=== PATIENT | female | born 1960 | race Caucasian/White ===

== ENCOUNTER 2024-07-17 12:50 | Emergency (ER) | payer OTHER ==
--- OUTSIDE RECORDS SUMMARY | 2024-07-17 12:53 | XMS REPORT | Clinical Summary ---
Author Name Unknown Organization [facility] Address [address] [place] [address] Care Team Providers Care Packing Machine Feeder Name Role Phone Hemal Montilla MD Primary Care Provider [phone] Yohana Garcia MD Unavailable Yohana Garcia MD Unavailable Carol Willis MD Unavailable Kvng Heredia Unavailable [phone] Hemal Montilla MD Unavailable [phone] Mallory Wu APRN Unavailable Allergies Active Allergy Reactions Criticality Noted Date Comments Hydrocodone-Acetaminophen 06/26/2016 Hives Penicillin G Hives 11/16/2015 Sulfamethoxazole Hives 11/16/2015 Medications fluticasone (FLONASE) 50 mcg/spray nasal spray Inhale 1 puff into each nostril daily. Active FLUoxetine (PROzac) 20 mg capsule Take 20 mg by mouth daily. Active albuterol (VENTOLIN HFA) 90 mcg/puff inhaler Inhale 1 puff by mouth daily as needed. Active CA COMB NO.1/VIT D3/B-6/FA/B12 (VITAMIN D3, CALCIUM CIT-PHOS, ORAL) Take 1 tablet by mouth daily. Active amitriptyline (ELAVIL) 50 mg tablet Take 1 tablet by mouth daily. 1 11/17/2015 Active cetirizine (ZyrTEC) 10 mg tablet Take 10 mg by mouth daily. Active FLUTICASONE/TOMMY ANTEROL (BREO ELLIPTA INHALATION) Inhale by mouth. Active busPIRone (BUSPAR) 10 mg tablet Take 1 tablet by mouth daily. 0 05/13/2017 Active montelukast (SINGULAIR) 10 mg tablet Take 1 tablet by mouth daily. 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 Surgical History Surgery Date Site/Laterality Comments HYSTERECTOMY 06/16/1997 - 06/15/1998 ELBOW SURGERY 06/16/1997 - 06/15/1998 Right BUNIONECTOMY 06/16/2006 - 06/15/2007 CYST REMOVAL 06/16/1978 - 06/15/1979 Right MASTECTOMY 06/16/2010 - 06/15/2011 OTHER SURGICAL HISTORY myxoma 6inch on right thigh COLONOSCOPY 06/16/1999 - 06/15/2000 normal follow at age 58 Medical History Medical History Date Comments Asthma Hay fever Irritable bowel syndrome Breast cancer 2010 Family History Medical History Relation Name Comments Ovarian cancer Maternal Aunt Lung cancer Maternal Uncle Relation Name Status Comments Maternal Aunt Maternal Uncle Social History Tobacco Use Types Packs/Day Years Used Date Smoking Tobacco: Never Smokeless Tobacco: Never Alcohol Use Standard Drinks/Week Comments Yes 3 (1 standard drink = 0.6 oz pur e alcohol) socially Comments No Sex and Gender Information Value Date Recorded Sex Assigned at Not on file Legal Sex Female 5:51 PM URGENT CARE PHYSICIAN Gender Identity Not on file Sexual Orientation Not on file Obstetrics History Para Term AB IAB SAB Ectopic Multiple Livin g Live Births 3 3 3 3 Date Outcome GA Total Labor Labor/2nd/3rd Weight Sex Type Anes PTL Vibha A1 A5 Name Clin Para Para Para Comments Mammogram: OS 10/2015 Dexa: OS 2015 normal Pap Smear: Hysterectomy 1996 Plan of Treatment Health Maintenance Due Date Last Done Comments Pneumococcal Vaccine: 65+ Years (1 of 1 - PCV) 009 COVID-19 Vaccine (2023- season) 2024 Influenza Vaccine (#1) 2024 Medical Devices Implanted Type Area Sand Caster Device Identifier Shelf Expiration Date Model / Serial / Lot Some Titanium Screw In Left Joint [place] Care Teams Packing Machine Feeder Relationship Specialty Start Date End Date Hemal Montilla MD [address] [place] [id number] [email or web address] PCP - General 08/16/15 Yohana Garcia MD [address] [place] [phone] [email or web address] PCP - External Referring 04/20/15 Yohana Garcia MD [address] [place] [id number] [email or web address] PCP - External Follow Up A 04/20/15 Carol Willis MD [address] [place] [id number] [email or web address] - External Follow Up B 05/05/15 Kvng Heredia PA [address] [place] [phone] [email or web address] Physician Backbreaker 08/23/15 Hemal Montilla MD [address] [place] [phone] [email or web address] Physician 08/23/15 Mallory Wu, LAURA [address] [place] [phone] [email or web address] Nurse Practitioner Breast Medical Oncology 06/26/16
[2024-07-17] MEDS ORDERED: KETOROLAC 30 MG/ML INJ ONE (13:43)
[2024-07-17 14:01] LABS: Specific Gravity 1.008 (1.005-1.030); Sqamous Epithelial <5 /HPF (None Seen); Urine Bacteria <20 /HPF (<20); Urine Bilirubin NEGATIVE (Negative); Urine Blood Negative (Negative); Urine Clarity Clear (Clear); Urine Color Colorless (Yellow); Urine Culture Reflex Order NOT NEEDED; Urine Glucose NEGATIVE (Negative); Urine Ketones NEGATIVE (Negative); Urine Microscopic Reflex YN ORDER UMIC; Urine Nitrite NEGATIVE (Negative); Urine Protein NEGATIVE (Negative); Urine RBC <5 /HPF (None Seen); Urine Urobilinogen Normal (Normal); Urine WBC <5 /HPF (<5); Urine pH 6.5 (5.0-7.0)
[2024-07-17 14:10] LABS: Absolute Basophils 0.1 K/uL (0-0.5); Absolute Eosinophils 0.1 K/uL (0-0.5); Absolute Lymphocytes (CBC) 1.4 K/uL (0.7-4.9); Absolute Monocytes 0.4 K/uL (0.1-1.3); Absolute Neutrophil 3.8 K/uL (1.8-8.0); Basophils % 1.3 % (0-1.3); Hematocrit 42.4 % (36.0-45.0); Hemoglobin 14.6 g/dL (12.0-15.0); Lymphocytes % 25.1 % (15.3-44.8); MCH 29.1 pg (27.0-35.0); MCHC 34.5 g/dL (32.0-36.0); MCV 84.3 fL (80-100); MPV 8.5 fL (7.6-11.3); Monocytes % 7.3 % (3.3-12.3); Neutrophils % 65.3 % (41.7-73.7); Platelets 218 thou/uL (152-406); RBC Red Blood Cell Count 5.03 M/uL (3.86-4.86); Red Cell Distribution Width 14.1 % (12.1-15.2)
[2024-07-17 14:32] LABS: Albumin 4.2 g/dL (3.4-5.0); Albumin/Globulin Ratio 1.2 (1.1-1.8); Anion Gap 8.8 mEq/L (5.0-15.0); Bilirubin Total 0.3 mg/dL (0.2-1.0); Globulin 3.5 g/dL (2.3-3.5); Potassium 3.8 mEq/L (3.5-5.1); Protein, Total 7.7 g/dL (6.4-8.2)
--- NOTE | 2024-07-17 15:59 | RAD REPORT ---
EXAMINATION: CT Abdomen Pelvis W Contrast CLINICAL INDICATION: Female, 63 years old. RLQ abd pain;Abd pain TECHNIQUE: CT abdomen and pelvis was performed, after the administration of IV contrast, as per [facility] protocol. Axial, sagittal and coronal reconstructions were obtained. One or more of the following dose reduction techniques were used: Automated exposure control, adjustment of the mA and k V according to patient size, and iterative reconstruction. Unless otherwise specified, incidental findings do not require dedicated imaging follow-up. COMPARISON: 05/01/2024 FINDINGS: LOWER CHEST: The visualized lung bases are clear. LIVER: Normal in size and contour. Hypoattenuating lesions including a superior left subcapsular lobu lated 2 cm lesion nearing fluid density, central near fluid density 8 mm lesion, and a mildly hypodense elongated right peripheral hepatic dome 1.2 cm lesion, stable. No suspicious focal lesion. BILIARY SYSTEM: No suspicious abnormalities. SPLEEN: Normal size. No focal lesion. PANCREAS: No mass, ductal dilation, or dior-pancreatic fluid. ADRENALS: Normal; no mass. KIDNEYS: Normal size and contour. No hydronephrosis. URINARY BLADDER: Decompressed limiting evaluation. GASTROINTESTINAL TRACT: No evidence of free air, significant intra-abdominal free fluid, bowel obstru ction or abscess. APPENDIX: Normal appendix. LYMPH NODES: No lymphadenopathy. MUSCULOSKELETAL: No acute or suspicious osseous abnormality. ADDITIONAL FINDINGS: None. IMPRESSION: No acute or concerning abnormalities seen in the abdomen or pelvis. Stable hepatic lesions described above, favored to be benign.
--- NOTE | 2024-07-17 16:11 | EDPHYS ---
Physician Documentation [facility] Name: Jodi Ackerman Age: 63 yrs Sex: Female : 1960 Arrival Date: 07/17/2024 Time: 12:50 Bed 13 Private MD: ED Physician José Manuel Dejesus HPI: 07/17 14:16 This 63 yrs old Female presents to ER via Ambulatory with complaints of Abdominal Pain. rn 14:16 The patient presents with abdominal pain right lower quadrant. Onset: The rn symptoms/episode began/occurred today. The symptoms do not radiate. Associated signs and symptoms: Pertinent negatives: nausea and vomiting, blood in stools, chest pain, constipation, diarrhea, dysuria, fever, hematuria. Modifying factors: The symptoms are alleviated by nothing, the symptoms are aggravated by touching the area. Severity of pain: At its worst the pain was moderate in the emergency department the pain is unchanged. The patient has experienced a previous episode. Patient reports this pain reminds her of when she had diverticulitis but on the opposite side. Reports right lower quadrant abdominal pain that began today. No fever or chills. No vomiting. Does report increase urinary frequency but no hematuria. No history of kidney stones.. Historical: - Allergies: 13:25 PENICILLINS; ap3 13:25 Sulfa (Sulfonamide Antibiotics); ap3 - PMHx: 13:25 Hypertensive disorder; right breast cancer; ap3 - PSHx: 13:25 right mastectomy; ap3 - Immunization history:: Client reports receiving the 2nd dose of the Covid vaccine, Flu vaccine is not up to date. - Infectious Disease History:: Denies. - Social history:: Smoking status: Patient denies any tobacco usage or history of. - Family history:: not pertinent. - Hospitalizations: : No recent hospitalization is reported. ROS: 14:16 Constitutional: Negative for fever, chills, and weight loss, Cardiovascular: Negative rn for chest pain, palpitations, and edema, Respiratory: Negative for shortness of breath, cough, wheezing, and pleuritic chest pain, Abdomen/GI: Positive for right lower quadrant abdominal pain Back: Negative for injury and pain, : Positive for increased urinary frequency MS/Extremity: Negative for injury and deformity, Skin: Negative for injury, rash, and discoloration, Neuro: Negative for headache, weakness, numbness, tingling, and seizure, Exam: 14:16 Constitutional: This is a well developed, well nourished patient who is awake, alert, rn and in no acute distress. Cardiovascular: Regular rate and rhythm. No pulse deficits. Respiratory: No increased work of breathing, no retractions or nasal flaring. Abdomen/GI: Soft, right lower quadrant tenderness without rebound or peritoneal signs. No masses. No distention. Vital Signs: 13:24 BP 152 / 81; Pulse 75; Resp 17; Temp 97.8(O); Pulse Ox 98% on R/A; Weight 67.13 kg; ap3 Height 5 ft. 3 in. ; Pain 7/10; 14:16 BP 147 / 78; Pulse 75; Resp 18 S; Pulse Ox 100% on R/A; kc6 15:09 Pulse 65; Resp 16 S; Pulse Ox 100% on R/A; kc6 13:24 Body Mass Index 26.22 (67.13 kg, 160.02 cm) ap3 13:24 Pain Scale: Adult ap3 MDM: 13:06 Medical Screening Exam initiated rn 16:10 Differential diagnosis: appendicitis, bowel obstruction, cholecystitis, Cholelithiasis, rn diverticulitis, gastritis, non-specific abd pain, pancreatitis, Peptic Ulcer Disease, Ureterolithiasis, urinary tract infection. Data reviewed: vital signs, nurses notes, lab test result(s), radiologic studies, CT scan, and as a result, I will discharge patient. Counseling: I had a detailed discussion with the patient and/or guardian regarding the historical points, exam findings, and any diagnostic results supporting the discharge/admit diagnosis, lab results, radiology results, the need for outpatient follow up, to return to the emergency department if symptoms worsen or persist or if there are any questions or concerns that arise at home. Special discussion: Based on the patient's Hx, exam, and Dx evaluation, there is no indication for emergent surgery or inpatient Tx. It is understood by the patient/guardian that if the Sx's persist or worsen they need to return immediately for re-evaluation. I discussed with the patient/guardian in detail that at this point there is no indication for admission to the hospital. It is understood, however, that if the symptoms persist or worsen the patient needs to return immediately for re-evaluation. ED course: No acute findings in CT or blood work but pain very similar to last diverticulitis, just darted 2 hours prior to arrival so possibly too early to see on CT imaging. Will discharge home with antibiotics as presumed inflammatory process in the abdomen.. 07/17 13:31 Order name: CBC with Diff; Complete Time: 14:47 rn 07/17 13:31 Order name: CMP; Complete Time: 14:47 rn 07/17 13:31 Order name: Lipase; Complete Time: 14:47 rn 07/17 13:31 Order name: Urinalysis w/ reflexes; Complete Time: 14:47 rn 07/17 13:31 Order name: CT Abd/Pelvis - IV Contrast Only; Complete Time: 16:01 rn 07/17 13:31 Order name: IV Saline Lock; Complete Time: 14:09 rn 07/17 13:31 Order name: Labs collected and sent; Complete Time: 14:09 rn Administered Medications: 14:09 Drug: Ketorolac IVP 15 mg IVP once Route: IVP; Site: left forearm; kc6 15:07 Follow up: Response: No adverse reaction kc6 16:44 Drug: Ciprofloxacin PO 500 mg PO once Route: PO; kc6 16:54 Follow up: Response: No adverse reaction kc6 16:44 Drug: metroNIDAZOLE PO 500 mg PO once Route: PO; kc6 16:54 Follow up: Response: No adverse reaction kc6 Disposition Summary: 07/17/24 16:11 Discharge Ordered Notes: Location: Home rn Problem: new rn Symptoms: have improved rn Condition: Stable rn Diagnosis - Lower abdominal pain, unspecified rn Followup: rn - With: Private Physician - When: As needed - Reason: Recheck today's complaints, Re-evaluation by your physician Discharge Instructions: - Discharge Summary Sheet rn - Abdominal Pain, Adult rn Forms: - Medication Reconciliation Form rn - Antibiotic ornament maker hand - Prescription Opioid Use rn - Patient Portal Instructions rn - Leadership Thank You Letter rn Prescriptions: - Flagyl 500 mg Oral tablet - take 1 tablet ORAL route every 12 hours for 10 days; 2 tablet; Refills: 0, rn Product Selection Permitted - Cipro 500 mg Oral tablet - take 1 tablet ORAL route every 12 hours for 10 days; 20 tablet; Refills: 0, rn Product Selection Permitted Signatures: Dispatcher [employer] EDJosé Manuel Joe MD MD rn Prokisch, Amanda, RN RN [email or web address] Cortney Mitchell, RN RN kc6
--- NOTE | 2024-07-17 16:11 | ER ---
Nurse's Notes [facility] Name: Jodi Ackerman Age: 63 yrs Sex: Female : 1960 Arrival Date: 07/17/2024 Time: 12:50 Bed 13 Private MD: Diagnosis: Lower abdominal pain, unspecified Presentation: 07/17 13:24 Chief complaint: Patient states: she started having right abdominal pain approx 2 hours ap3 prior to arrival. patient states the pain is a burning sensation and reports the pain as a 7/10 on the pain scale at this time. patient denies nausea and vomiting. Coronavirus screen: At this time, the client does not indicate any symptoms associated with coronavirus-19. Ebola Screen: No symptoms or risks identified at this time. Initial Sepsis Screen: Does the patient meet any 2 criteria? No. Patient's initial sepsis screen is negative. Does the patient have a suspected source of infection? No. Patient's initial sepsis screen is negative. Risk Assessment: Do you want to hurt yourself or someone else? Patient reports no desire to harm self or others. Onset of symptoms was July 17, 2024. 13:24 Method Of Arrival: Ambulatory ap3 13:24 Acuity: MARIANNE 3 ap3 Triage Assessment: 13:26 General: Appears uncomfortable, Behavior is calm, cooperative, appropriate for age. ap3 Pain: Complains of pain in right upper quadrant and right lower quadrant Pain currently is 7 out of 10 on a pain scale. Quality of pain is described as burning. Neuro: Level of Consciousness is awake, alert, obeys commands, Oriented to person, place, time, situation, Appropriate for age. Cardiovascular: Patient's skin is warm and dry. Respiratory: Airway is patent Respiratory effort is even, unlabored, Respiratory pattern is regular, symmetrical. GI: Reports lower abdominal pain, upper abdominal pain, constipation. Historical: - Allergies: 13:25 PENICILLINS; ap3 13:25 Sulfa (Sulfonamide Antibiotics); ap3 - PMHx: 13:25 Hypertensive disorder; right breast cancer; ap3 - PSHx: 13:25 right mastectomy; ap3 - Immunization history:: Client reports receiving the 2nd dose of the Covid vaccine, Flu vaccine is not up to date. - Infectious Disease History:: Denies. - Social history:: Smoking status: Patient denies any tobacco usage or history of. - Family history:: not pertinent. - Hospitalizations: : No recent hospitalization is reported. Screenin:[address] [facility] ED Fall Risk Assessment (Adult) History of falling in the last 3 months, ap3 including since admission No falls in past 3 months (0 pts) Confusion or Disorientation No (0 pts) Intoxicated or Sedated No (0 pts) Impaired Gait No (0 pts) Mobility Assist Device Used No (0 pt) Altered Elimination No (0 pt) Score/Fall Risk Level 0 - 2 = Low Risk Oriented to surroundings, Maintained a safe environment, Educated pt \T\ family on fall prevention, incl call for assistance when getting out of bed, Assessed \T\ reinforced patient's understanding of fall precautions, Hourly rounding (assess needs \T\ fall precautionary measures) done, Used ambulatory aids as needed (educated on \T\ assisted with). Abuse screen: Denies threats or abuse. Nutritional screening: No deficits noted. Tuberculosis screening: No symptoms or risk factors identified. Assessment: 14:17 General: Appears in no apparent distress. comfortable, well groomed, well developed, kc6 Behavior is calm, cooperative, appropriate for age. Pain: Complains of pain in right upper quadrant and left lower quadrant Pain currently is 6 out of 10 on a pain scale. Neuro: Level of Consciousness is awake, alert, obeys commands, Oriented to person, place, time, situation, Appropriate for age. Cardiovascular: Capillary refill < 3 seconds. Respiratory: Airway is patent Trachea midline Respiratory effort is even, unlabored, Respiratory pattern is regular, symmetrical. GI: Abdomen is flat, non-distended, Bowel sounds present X 4 quads. Abd is soft X 4 quads Abdomen is tender to palpation in right upper quadrant and left lower quadrant Reports lower abdominal pain, upper abdominal pain, bloating, Patient currently denies diarrhea, nausea, vomiting. : No signs and/or symptoms were reported regarding the genitourinary system. Urine is clear. EENT: No signs and/or symptoms were reported regarding the EENT system. Derm: No signs and/or symptoms reported regarding the dermatologic system. Skin is intact, is healthy with good turgor, Skin is pink, warm \T\ dry. Musculoskeletal: No signs and/or symptoms reported regarding the musculoskeletal system. Circulation, motion, and sensation intact. Range of motion: intact in all extremities. 15:09 Reassessment: Patient appears in no apparent distress at this time. No changes from kc6 previously documented assessment. Patient and/or family updated on plan of care and expected duration. Pain level reassessed. Patient is alert, oriented x 3, equal unlabored respirations, skin warm/dry/pink. 16:05 Reassessment: Patient appears in no apparent distress at this time. No changes from kc6 previously documented assessment. Patient and/or family updated on plan of care and expected duration. Pain level reassessed. Patient is alert, oriented x 3, equal unlabored respirations, skin warm/dry/pink. 16:54 Reassessment: Patient appears in no apparent distress at this time. No changes from kc6 previously documented assessment. Patient and/or family updated on plan of care and expected duration. Pain level reassessed. Patient is alert, oriented x 3, equal unlabored respirations, skin warm/dry/pink. Patient states feeling better. Patient states symptoms have improved. Vital Signs: 13:24 BP 152 / 81; Pulse 75; Resp 17; Temp 97.8(O); Pulse Ox 98% on R/A; Weight 67.13 kg; ap3 Height 5 ft. 3 in. ; Pain 7/10; 14:16 BP 147 / 78; Pulse 75; Resp 18 S; Pulse Ox 100% on R/A; kc6 15:09 Pulse 65; Resp 16 S; Pulse Ox 100% on R/A; kc6 13:24 Body Mass Index 26.22 (67.13 kg, 160.02 cm) ap3 13:24 Pain Scale: Adult ap3 ED Course: 12:57 Patient arrived in ED. al6 13:05 José Manuel Dejesus MD is Attending Physician. rn 13:25 Triage completed. ap3 13:27 Arm band placed on right wrist. ap3 13:32 Cortney Mitchell, RAHUL is Primary Nurse. kc6 14:16 Patient has correct armband on for positive identification. Bed in low position. Call kc6 light in reach. Side rails up X2. Pulse ox on. NIBP on. Door closed. Noise minimized. Lights dimmed. Warm blanket given. Pillow given. 14:16 Inserted saline lock: 22 gauge in left forearm, using aseptic technique. Blood kc6 collected. Flushed with 10 mL NS. Patient maintains SpO2 saturation greater than 95% on room air. 14:52 CT Abd/Pelvis - IV Contrast Only In Process Unspecified. EDMS 16:54 No provider procedures requiring assistance completed. IV discontinued, intact, kc6 bleeding controlled, No redness/swelling at site. Pressure dressing applied. Administered Medications: 14:09 Drug: Ketorolac IVP 15 mg IVP once Route: IVP; Site: left forearm; kc6 15:07 Follow up: Response: No adverse reaction kc6 16:44 Drug: Ciprofloxacin PO 500 mg PO once Route: PO; kc6 16:54 Follow up: Response: No adverse reaction kc6 16:44 Drug: metroNIDAZOLE PO 500 mg PO once Route: PO; kc6 16:54 Follow up: Response: No adverse reaction kc6 Medication: 16:54 VIS not applicable for this client. kc6 Outcome: 16:11 Discharge ordered by . rn 16:54 Discharged to home ambulatory, kc6 16:54 Condition: good 16:54 Discharge instructions given to patient, Instructed on discharge instructions, follow up and referral plans. medication usage, Demonstrated understanding of instructions, follow-up care, medications, Prescriptions given X 2, 16:55 Patient left the ED. kc6 Signatures: Dispatcher [employer] EDMS José Manuel Dejesus MD MD rn Prokisch, Amanda, RN RN [id number] Cortney Mitchell RN RN kc6 Gina Arita6
[2024-07-17] MEDS ORDERED: metroNIDAZOLE 500 MG TABLET ONE (16:42)
[2024-07-17] MEDS ORDERED: CIPROFLOXACIN HCL 500 MG TAB ONE (16:42)
[2024-07-17 17:03] VITALS: TEMP 97.8
[2024-07-17 17:08] VITALS: BP 147/78; O2SAT 100
== END 2024-07-17 16:55 | disposition home or self-care (01) ==
LOC: ER 12:50
DX: R10.31 Right lower quadrant pain (principal)
CPT/HCPCS: 85025; 81001; 36415; 83690; 80053; 74177; 96374; 99284; Q9967